=== PATIENT | female | born 1990 | race African-American/Black ===

== ENCOUNTER 2016-07-24 15:57 | Emergency (ER) | payer BC ==
[~2016-07-24] VITALS: Ht 170.2 cm; Wt 78.9 kg
[2016-07-24 15:58] VITALS: BP 120/88
[2016-07-24] MEDS ORDERED: UNK BIRTH CONTROL (15:58)
[2016-07-24] MEDS ORDERED: KEFLEX500 MG PO (16:35)
[2016-07-24] MEDS ORDERED: IBUPROFEN 600600 M1 PO (16:36)
== END 2016-07-24 16:40 | disposition home or self-care (01) ==
LOC: ER 15:57
DX: L03.114 Cellulitis of left upper limb (principal)